=== PATIENT | female | born 1935 | race Caucasian/White ===

== ENCOUNTER 2021-09-18 11:34 | Emergency (ER) | payer OTHER, BC, MEDICARE ==
[2021-09-18 11:55] VITALS: TEMP 98.5; BMI 20.7
[2021-09-18] MEDS ORDERED: BACITRACIN 0.9 GM PACKET TP ONE (12:14)
[2021-09-18] MEDS ORDERED: DIPHTH,PERTUSS(ACELL),TET 0.5 ML DISP.SYRIN IM ONE ×2 (12:21→12:29)
[2021-09-18 13:54] VITALS: BP 153/65; PULSE 75
== END 2021-09-18 13:55 | disposition home or self-care (01) ==
LOC: FER 11:34
PROC: 3E0234Z Introduction of Serum, Toxoid and Vaccine into Muscle, Percutaneous Approach (ICD-10-PCS; principal; 2021-09-18)
DX: S01.01XA Laceration without foreign body of scalp, initial encounter (principal); W18.30XA Fall on same level, unspecified, initial encounter
CPT/HCPCS: 70450-TC; 72125-TC; 90471; 90715; 99284-25